=== PATIENT | male | born 1975 | race Caucasian/White ===

== ENCOUNTER 2024-02-02 03:17 | Emergency (ER) | payer OTHER, SELFPAY ==
[2024-02-02 03:20] VITALS: BP 133/106; PULSE 97; RESP 18; TEMP 36.6; O2SAT 94; BMI 27.6
--- NOTE | 2024-02-02 03:31 | ED_ITS ---
HPI - Extremity Problem General: Chief complaint: Extremity Problem,Nontraumatic Stated complaint: Back Pain- numbness Time Seen by Provider: 02/02/24 03:20 History of Present Illness: 48-year-old man who presents to the [facility] room with police after traffic stop. Apparently he was coming in for drug/alcohol testing. As he got here he says his back started hurting. He says he has chronic SI joint issues and now his back is hurting. He does appear to be on some sort of drug or have some sort of psychiatric troubles. He is complaining of right SI joint pain. My HPI back pain Review of Systems Narrative: Constitutional symptoms: Negative except as documented in HPI. Skin symptoms: Negative except as documented in HPI. Eye symptoms: Negative except as documented in HPI. ENMT symptoms: Negative except as documented in HPI. Respiratory symptoms: Negative except as documented in HPI. Cardiovascular symptoms: Negative except as documented in HPI. Gastrointestinal symptoms: Negative except as documented in HPI. Genitourinary symptoms: Negative except as documented in HPI. Musculoskeletal symptoms: Negative except as documented in HPI. Neurologic symptoms: Negative except as documented in HPI. Psychiatric symptoms: Negative except as documented in HPI. Endocrine symptoms: Negative except as documented in HPI. Physical Exam Narrative: EXAM NARRATIVE: General: Alert, no acute distress. Skin: warm and dry Head: Normocephalic Neck: Trachea midline Eye: Extraocular movements are intact. Ears, nose, mouth and throat: Oral mucosa moist Respiratory: Respirations are non-labored Musculoskeletal: Normal ROM Neurological: Alert and oriented, No focal neurological deficit observed. Psychiatric: Cooperative, inappropriate affect Course Vital Signs: Vital signs: Vital Signs Temperature 97.8 F 02/02/24 03:20 Pulse Rate 97 02/02/24 03:20 Respiratory Rate 18 02/02/24 03:20 Blood Pressure 133/106 02/02/24 03:20 Pulse Oximetry 94 02/02/24 03:20 Oxygen Delivery Me thod Room Air 02/02/24 03:20 MDM - Extremity (Nontraumatic) Medical Decision Making Assessment and plan: Low back pain ?IM Toradol, IM Decadron, p.o. Flexeril - Discharged home - Discussed plan with patient. Answered any questions. - Evaluation and treatment of this problem were appropriate in the emergency setting. No radiology studies performed this visit Discharge Plan Discharge Patient Disposition: Home Clinical Impression: Back pain Condition: Stable Discharge Orders: Discharge ED (Routine); Ordered 02/02/24 Ordered By: Kristina Rivera Referrals: ADRIAN GERMAIN MD [place] [Family Provider] - Discharge Diet: Usual diet Discharge Activity: Resume usual activity Patient Instructions: Back Pain (ED) Activity Restrictions/Additional Instructions: Thank you for choosing [facility] for your healthcare needs today. Please realize this is an emergency room and that we are providing you with a medical screening exam and this may not be complete and all inclusive of all the testing and or work up that you may need to determine your ailment or severity of your illness. You have been screened and evaluated and felt safe for discharge. Health conditions do change or evolve sometimes and as such it is important that you follow up with your Primary Doctor to be re checked, 3-5 days is a general good time frame for follow up. You are always welcome to return to the ED for re assessment if your symptoms are worsening or you have new concerns Coding Level of Care Code ED Ice Puller for Teodora Caballero
[2024-02-02] MEDS: cyclobenzaprine 10 mg Tablet PO (03:39)
[2024-02-02] MEDS: ketorolac 60 mg/2 mL INJ IM (03:39)
[2024-02-02] MEDS: dexamethasone 10 mg/mL INJ IM (03:39)
== END 2024-02-02 03:46 | disposition home or self-care (01) ==
PROVIDERS: Emergency Provider Emergency Medicine
DX: M54.50 Low back pain, unspecified (principal)
CPT/HCPCS: 96372; 99284; J1100; J1885

== ENCOUNTER 2024-05-31 17:56 | Emergency (ER) | payer OTHER, SELFPAY ==
[2024-05-31 18:22] VITALS: BP 115/82; PULSE 75; RESP 16; TEMP 36.5; O2SAT 94
--- NOTE | 2024-05-31 18:53 | XRR_ITS ---
PROCEDURE INFORMATION: Exam: XR Right Foot Exam date and time: 05/31/2024 6:58 PM Age: 49 years old Clinical indication: Injury or trauma; Fall; Fracture, traumatic; Closed fracture; Foot; Right; Prior surgery; Surgery date: 6+ months; Surgery type: Pin in ankle; Additional info: Foot pain, fall missed steps TECHNIQUE: Imaging protocol: Radiologic exam of the right foot. Views: 3 or more views. COMPARISON: No relevant prior studies available. FINDINGS: Bones/joints: Acute comminuted fracture through the 5th metatarsal neck with fracture line approaching the metatarsal head but without definite intra-articular extension. Mild superior displacement of the 5th metatarsal head. Mild medial displacement of a butterfly fracture fragment Intramedullary screws at the medial malleolus. Calcaneal enthesopathy. Soft tissues: Lateral midfoot soft tissue swelling. XR/XR foot RT min 3V* [id number] IMPRESSION: Acute, comminuted and mildly displaced fracture through the 5th metatarsal neck without definite intra-articular extension.
--- NOTE | 2024-05-31 19:09 | XRR_ITS ---
PROCEDURE INFORMATION: Exam: XR Right Ankle Exam date and time: 05/31/2024 7:02 PM Age: 49 years old Clinical indication: Ankle and foot; Right; Prior surgery; Surgery date: 6+ months; Surgery type: RT ankle fixation; Patient HX: RT foot/ankle pain post fall TECHNIQUE: Imaging protocol: Radiologic exam of the right ankle. Views: 3 or more views. COMPARISON: CR (LOW EXM, ) 05/31/2024 6:58 PM FINDINGS: Bones/joints: Remote screw fixation of the medial malleolus. No acute osseous abnormality of the ankle. Remote posttraumatic deformities at the medial and lateral malleoli. The ankle mortise is congruent. Calcaneal enthesopathy. Soft tissues: Unremarkable. XR/XR ankle RT min 3V* [id number] IMPRESSION: No acute osseous abnormality at the ankle.
[2024-05-31] MEDS: ketorolac 60 mg/2 mL INJ IM (21:15)
--- NOTE | 2024-05-31 23:46 | W.ED.EXTPRO ---
HPI - Extremity Problem General: Chief complaint: Extremity Injury, Lower Stated complaint: right foot injury Time Seen by Provider: 05/31/24 20:23 Source: patient Mode of arrival: ambulatory Limitations: no limitations History of Present Illness: Patient is a 49-year-old male presenting to the emergency department with a right foot injury that occurred just prior to arrival. He states he was carrying his granddaughter walking on steps when he missed the last 3 steps causing an inversion injury to his right ankle. States the pain and swelling have gotten worse, primarily to the distal lateral aspect of the right foot. Does have a prior surgical history on the right foot with screws in place, denies any pain over this area. Has remained somewhat ambulatory, but states that is becoming increasingly painful. Has not taken anything for pain at this time, is requesting something right now. MD Complaint: extremity pain Onset (ago): hour(s) Pain Consistency: constant Location: right and lower extremity (foot) Radiation: distal Exacerbating factors: range of motion and weight bearing Associated symptoms: Deny chest pain, fever(s) or rash Related Data Allergies Allergy/AdvReac Type Severity Reaction Status Date / Time No Known Allergies Allergy Verified 05/31/24 18:26 Review of Systems General: Reports: 10 or more systems reviewed and unremarkable except in HPI and below Const: Denies: fever(s) or chills Card: Denies: chest pain Resp: Denies: dyspnea or productive cough GI: Denies: abdominal pain, nausea, vomiting or diarrhea : Denies: flank pain Musc: Reports: extremity pain and extremity swelling; Denies: neck pain, back pain, joint pain, joint swelling, joint redness, joint warmth or muscle weakness Skin/Breast: Denies: rash Neuro: Denies: headache(s), numbness in extremities or weakness in extremities Physical Exam Const: COMMON NORMALS: no acute distress, patient oriented x3, no limitations, healthy appearing, alert and well nourished HENMT: COMMON NORMALS: normocephalic and atraumatic HEAD & SCALP: normocephalic and atraumatic Neck/C-Spine: COMMON NORMALS: full ROM, supple and no meningeal signs Resp: COMMON NORMALS: normal respiratory effort, No use of accessory muscles and clear to auscultation bilaterally AUSCULTATION: clear to auscultation bilaterally Cardio: COMMON NORMALS: regular rate and regular rhythm RATE: regular rate RHYTHM: regular rhythm Extremity: NARRATIVE EXTREMITY EXAM: There is a good amount of swelling and bruising noted just distal to the base of the fifth metatarsal on the right foot. This area is moderately tender to palpation. He does have good sensations distally. Also has 2+ DP/PT pulses of the right foot. Postoperative scars present from prior surgery. Neuro: COMMON NORMALS: patient oriented x3, moves all extremities, no focal motor deficits and no sensory deficits noted SENSORIUM/ORIENTATION: Yes alert MENINGEAL SIGNS: Yes no meningeal signs Skin: COMMON NORMALS: no rashes or lesions noted GENERAL SKIN EXAM: no rashes or lesions noted Course Vital Signs: Vital signs: Vital Signs Temperature 97.7 F 05/31/24 18:22 Pulse Rate 75 05/31/24 18:22 Respiratory Rate 16 05/31/24 18:22 Blood Pressure 115/82 05/31/24 18:22 Pulse Oximetry 94 05/31/24 18:22 Oxygen Delivery Me thod Room Air 05/31/24 18:22 MDM - Extremity (Nontraumatic) Medical Decision Making Patient fell a few hours prior to arrival injuring his right foot. There is an acute, comminuted displaced fracture through the fifth metatarsal neck. Pictures were sent to Dr. Manning, podiatry, who agrees to see the patient next week after being splinted and made nonweightbearing. Post splint neurovascular status was intact. Was given a shot of Toradol prior to discharge. Lab Data Radiology Impressions Foot X-Ray 05/31/24 18:53 IMPRESSION: Acute, comminuted and mildly displaced fracture through the 5th metatarsal neck without definite intra-articular extension. Ankle X-Ray 05/31/24 19:09 IMPRESSION: No acute osseous abnormality at the ankle. All radiology interpretation(s) finalized by discharge Discharge Plan Discharge Patient Disposition: Home Clinical Impression: Fracture of fifth metatarsal bone of right foot Condition: Stable Discharge Orders: Discharge ED (Routine); Ordered 05/31/24 Ordered By: Eusebio Pardo Patient Instructions: Foot Fracture in Adults (ED) Activity Restrictions/Additional Instructions: Nonweightbearing with crutches. Follow-up with podiatry next week. Splint on until follow-up. Please elevate the extremity and take Tylenol and ibuprofen for pain. Return with any new or worsening. Coding Level of Care Code ED Link Trainer Maintenance Man for Teodora Caballero
--- NOTE | 2024-06-03 07:22 | DCPLANNER ---
message sent to podiatry for er f/u
== END 2024-05-31 21:27 | disposition home or self-care (01) ==
PROVIDERS: Emergency Provider Physician Assistant
DX: S92.351A Displaced fracture of fifth metatarsal bone, right foot, initial encounter for closed fracture (principal); X58.XXXA Exposure to other specified factors, initial encounter
CPT/HCPCS: 29515; 73610; 73630; 96372; 99284; E0114; J1885

== ENCOUNTER → 2024-06-10 15:55 | Outpatient (BNVA) | payer OTHER, SELFPAY | PROVIDERS: Visit Provider Podiatrist Foot & Ankle Surgery | DX: S92.351A Displaced fracture of fifth metatarsal bone, right foot, initial encounter for closed fracture; W10.8XXA Fall (on) (from) other stairs and steps, initial encounter | CPT/HCPCS: 99204 ==

== ENCOUNTER 2024-06-17 06:22 | Day surgery (SDC) | payer OTHER, SELFPAY ==
[2024-06-17] VITALS (8 sets, daily range): BP systolic 93–132; BP diastolic 56–82; PULSE 60–85; RESP 12–20; TEMP 36.1–36.4; O2SAT 93–96
--- NOTE | 2024-06-17 | XR_ITS ---
WS: [id number] C-ARM RADIOGRAPHS RIGHT FOOT; 2 IMAGES HISTORY: TIM PICS COMPARISON: 06/04/2024 Intraoperative imaging during plate screw and screw fixation across a comminuted fracture of the dist al third of the fifth metatarsal. Plate and screw in good position and alignment. XR/XR foot RT 2V [id number] IMPRESSION: Intraoperative imaging during plate and screw fixation comminuted fracture dist al fifth metatarsal.
[2024-06-17] MEDS: sodium chloride 0.9% 1,000 ML 30 ML IV (06:42)
[2024-06-17] MEDS: acetaminophen 1,000 MG/100 ML PIGGYBACK 400 MG IV (06:46)
[2024-06-17] MEDS: gabapentin 300 mg Capsule PO (06:49)
--- NOTE | 2024-06-17 07:55 | ANES.PREANE2 ---
Pre-Anesthetic Assessment Height/Weight: Height 1.75 m Weight 83.915 kg Temp Pulse Resp BP Pulse Ox O2 Del Method 97.3 F L 85 20 H 132/82 95 Room Air 06/17/24 06:35 06/17/24 06:35 06/17/24 06:35 06/17/24 06:35 06/17/24 06:35 06/17/24 06:35 Preop Diagnosis: right foot 5th metatarsal fracture Operation Date: 06/17/24 08:05 Proposed Procedures p ORIF Metatarsal right fifth metatarsal(Right) - Eusebio Manning DPM Familial anesthetic complications: None Was Beta Daisy taken within 24 hours: N/A Was Clonidine taken within 24 hours: N/A Last intake: Intake Last Liquid Date 06/16/24 Last Liquid Time 00:00 Last Solid Date 06/16/24 Last Solid Time 18:00 Social Tobacco and No alcohol Exam alert, oriented x 3, clear to auscultation bilaterally and regular rate & rhythm Airway Mallampati: Class I Dentition: full Anesthetic Plan ASA status: 1 Anesthesia: MAC Risk of > 500 ml blood loss (7ml/kg in children): No Medications/Allergies Home Medications Medication Instructions Recorded Confirmed Last Taken Type No Known Home Medications 06/10/24 06/17/24 Unknown History Allergies Allergy/AdvReac Type Severity Reaction Status Date / Time No Known Allergies Allergy Verified 06/13/24 13:02 Current Medications Generic Name Dose Route Start Last Admin Trade Name Freq PRN Reason Stop Dose Admin Sodium Chloride 1,000 mls @ 30 mls/hr 06/17/24 06:30 06/17/24 06:42 Sodium Chloride 0.9% IV 06/18/24 06:29 30 mls/hr .Q24H KRISTEN Administration PFSH Anesthesia Social History Smoking and tobacco/nicotine status: light tobacco/nicotine user Data Anesthesia Cardiac Studies: No Data to Display
--- NOTE | 2024-06-17 08:12 | W.PM.OPSUD ---
Surgery/Procedure H&P Update DATE OF PROCEDURE: June 17, 2024 DATE H&P PERFORMED: 06/10/24 H&P UPDATE INFORMATION: I have reviewed H&P completed within last 30 days, I have examined patient prior to procedure, No changes to prior documentation and H&P is in [facility] EMR on date indicated PREOP DIAGNOSIS: right foot 5th metatarsal fracture PLANNED PROCEDURE: Operation Date: 06/17/24 08:05 Proposed Procedures p ORIF Metatarsal right fifth metatarsal(Right) - Eusebio Manning DPM
[2024-06-17] MEDS: ceFAZolin 2,000 mg SDV 2000 MG IVP (08:30)
[2024-06-17] MEDS: BUPivacaine 0.5% INJ 30 mL INJECTION (08:54)
--- NOTE | 2024-06-17 09:49 | P.BOP_ITS ---
Date of procedure: 06/17/2024 Surgeon name: Eusebio Manning D.P.M. Medical Records Field Technician(s) name(s): Jorge Procedure(s) performed: Open reduction internal fixation right fifth metatarsal fracture Description of findings: Comminuted right fifth metatarsal Estimated blood loss: 5 cc Tourniquet time: 43 minutes Specimen(s) removed: None Post-operative diagnosis: Fifth metatarsal fracture right foot
--- NOTE | 2024-06-17 09:50 | P.OP_ITS ---
Operative Report Date of procedure: June 17, 2024 Surgeon: Eusebio Manning DPM Procedure: Date of procedure: 06/17/2024 Pre-op diagnosis: Right foot fifth metatarsal fracture Post-op diagnosis: Same Post-op findings: Comminuted distal right fifth metatarsal fracture Procedure done: Open reduction internal fixation right distal fifth metatarsal fracture CPT 10357 Implants: Oblique straight plate with 2.7 locking and nonlocking screws from [place] 28 Specimens removed: None Surgeon: Dr. Euseibo Manning DPM Senior Media Director: Jorge Estimated blood loss: 5 cc Tourniquet time: 43 minutes Complications: None Patient is a 49-year-old male that has a history of right foot fifth metatarsal fracture. Treatment options were discussed with the patient. Patient wishes to proceed with surgical intervention at this time. A lengthy discussion regarding the procedure, including risks and complications has been had with the patient and is noted in the recent clinic note. Written and verbal consent have been obtained. All patient questions have been answered to the patient?s satisfaction. No written or verbal guarantees have been given or implied. The patient has been NPO since midnight. The history has been reviewed and the history and physical is current. The signed consent was confirmed and placed in the patient chart. Patient imaging has been reviewed and is consistent with the diagnosis. Under mild sedation, the patient was brought into the operating room and placed on the table in the supine position. IV antibiotics were given by the anesthesia team as preoperative surgical prophylaxis. General sedation was then performed by the anesthesiateam. A pneumatic tourniquet was then placed about the right ankle. A local field block was performed using 0.5% Marcaine plain. The operative extremity was then prepped and draped in the usual fashion. The extremity was then elevated and exsanguinated before the tourniquet was inflated to 250 mmHg. After inflation, the following procedure was then performed. Attention was directed to the dorsal lateral aspect of the fifth metatarsophalangeal joint. A #15 blade was used to make a 6 cm incision overlying this area. Blunt dissection was carried down through subcutaneous superficial fascia to the level of periosteum which was incised with a #15 blade. Care was taken to preserve adjacent neurovascular structures as well as tenderness structures. The fracture pattern of the fifth metatarsal neck region was visualized and noted to have comminution. Care was taken to remove hematoma from site of fracture. Next, fracture was reduced and temporarily fixated befo re a baby gorilla angled straight plate was applied spanning the fracture. Good positioning of plate and screws was noted clinically as well as on C-arm imaging. The site was irrigated with copious Knight sterile saline before attention was directed to closure. Deep tissue was closed with 3-0 Vicryl followed by subcuticular closure with 4-0 Vicryl and skin closed with 4-0 nylon in horizontal mattress fashion. The tourniquet was let down good hyperemic response was noted to all digits of the right foot. The incision site was dressed with Xeroform, 4 x 4 gauze, Kerlix, Celso. The patient tolerated the procedure and anesthesia well and without complication. The patient was transported from the operating room to the recovery room with vital signs stable and vascular status intact to all digits of the right foot. The patient was given both written and verbal instructions to remain nonweightbearing to the operative extremity, to keep dressings/splint clean, dry and intact and to take pain medication as directed. The patient will follow-up in the outpatient setting at their scheduled appointment. The patient was discharged with my personal number and was instructed to call if any quest ions or issues should arise. They were discharged home once anesthesia criteria was met.
--- NOTE | 2024-06-17 10:25 | ANE.PACU2 ---
Inpatient post-anesthesia follow up: Airway intact: Yes Vital signs: Temperature 97.0 F Pulse Rate 60 Respiratory Rate 17 Blood Pressure 112/76 Pulse Oximetry 96 Oxygen Delivery Me thod Room Air Oxygen Flow Rate Fraction of Inspir ed Oxygen Hydration adequate: Yes Nausea and vomiting: No Pain level: 1 Mental status: Baseline
== END 2024-06-17 10:27 | disposition home or self-care (01) ==
PROVIDERS: Visit Provider Podiatrist Foot & Ankle Surgery
PROC: (CPT 28485; principal; 2024-06-17 07:55)
DX: S92.351A Displaced fracture of fifth metatarsal bone, right foot, initial encounter for closed fracture (principal); W01.0XXA Fall on same level from slipping, tripping and stumbling without subsequent striking against object, initial encounter
CPT/HCPCS: 28485; 73620; 76000; C1713; J0131; J0690; J2704; J3010; J3490; J7030

== ENCOUNTER → 2024-07-01 13:36 | Outpatient (BNVA) | payer OTHER, SELFPAY | PROVIDERS: PCP Internal Medicine; Visit Provider Podiatrist Foot & Ankle Surgery | DX: M79.671 Pain in right foot (principal); S92.351A Displaced fracture of fifth metatarsal bone, right foot, initial encounter for closed fracture; X58.XXXA Exposure to other specified factors, initial encounter | CPT/HCPCS: 73630; 99024 ==

== ENCOUNTER → 2024-07-22 13:00 | Outpatient (BNVA) | payer OTHER, SELFPAY | PROVIDERS: PCP Internal Medicine; Visit Provider Podiatrist Foot & Ankle Surgery | DX: M79.671 Pain in right foot (principal); Z98.890 Other specified postprocedural states; S92.351D Displaced fracture of fifth metatarsal bone, right foot, subsequent encounter for fracture with routine healing; X58.XXXD Exposure to other specified factors, subsequent encounter | CPT/HCPCS: 73630; 99024 ==

== ENCOUNTER 2024-08-23 17:15 | Emergency (ER) | payer OTHER, SELFPAY ==
--- NOTE | 2024-08-23 17:18 | XRR_ITS ---
PROCEDURE INFORMATION: Exam: XR Left Foot Exam date and time: 08/23/2024 5:57 PM Age: 49 years old Clinical indication: Ankle and foot; Left; Lt foot/ankle pain/swelling post twisting injury today TECHNIQUE: Imaging protocol: Radiologic exam of the left foot. Views: 3 or more views. COMPARISON: No relevant prior studies available. FINDINGS: Bones/joints: Normal. Soft tissues: Normal. XR/XR foot LT min 3V* [id number] IMPRESSION: No acute findings.
[2024-08-23 17:23] VITALS: BP 165/86; PULSE 86; RESP 22; TEMP 36.7; O2SAT 98; BMI 26.4
--- NOTE | 2024-08-23 18:01 | XRR_ITS ---
PROCEDURE INFORMATION: Exam: XR Left Ankle Exam date and time: 08/23/2024 6:00 PM Age: 49 years old Clinical indication: Ankle and foot; Left; Lt foot/ankle pain/swelling post twisting injury today TECHNIQUE: Imaging protocol: Radiologic exam of the left ankle. Views: 3 or more views. COMPARISON: CR (LOW EXM, ) 08/23/2024 5:57 PM FINDINGS: Bones/joints: Well corticated ossification inferior to the medial malleolus suggestive of old injury. No acute fracture. Soft tissues: Soft tissue swelling along the lateral ankle. XR/XR ankle LT min 3V* [id number] IMPRESSION: No acute findings.
--- NOTE | 2024-08-23 19:51 | W.ED.EXTPRO ---
HPI - Extremity Problem General: Chief complaint: Extremity Injury, Lower Stated complaint: lt foot inj Time Seen by Provider: 08/23/24 19:01 Source: patient Mode of arrival: ambulatory Limitations: no limitations History of Present Illness: Patient is a 49-year-old male who presents the emergency department after injuring left foot prior to arrival. Patient states this is a simple trip and fall, as he had inversion suddenly of his left ankle after stepping wrong. Reporting 10/10 pain. History of right foot injury requiring surgery. Notes swelling and pain to the lateral aspect of the left ankle. Was using his old crutches on entry into the ED. Has not taken anything for the pain, as this occurred just about 30 minutes before presenting. No neurological symptoms reported distally, no skin color changes or coolness. No open injury or wounds. MD Complaint: joint pain Onset (ago): minute(s) Pain Consistency: constant Location: left and lower extremity (Ankle) Severity scale (1-10): 10 Radiation: distal Exacerbating factors: weight bearing Associated symptoms: Deny chest pain, fever(s) or rash Related Data Home Medications Medication Instructions Recorded Confirmed No Known Home Medications 06/10/24 07/22/24 Previous Rx's Medication Instructions Recorded hydrocodone 5 mg-acetaminophen 325 1 tab PO Q6H PRN pain #28 tabs 06/17/24 mg tablet Allergies Allergy/AdvReac Type Severity Reaction Status Date / Time No Known Allergies Allergy Verified 08/23/24 17:23 Review of Systems General: Reports: 10 or more systems reviewed and unremarkable except in HPI and below Const: Denies: fever(s) or chills Card: Denies: chest pain Resp: Denies: dyspnea or productive cough GI: Denies: abdominal pain, nausea, vomiting or diarrhea : Denies: flank pain Musc: Reports: joint pain (Left ankle), joint swelling (Left ankle) and limited range of motion; Denies: neck pain, back pain, extremity pain, extremity swelling, joint redness, joint warmth or muscle weakness Skin/Breast: Denies: rash Neuro: Denies: headache(s), numbness in extremities or weakness in extremities PFS ED PFSH: Social History Smoking and tobacco/nicotine status: light tobacco/nicotine user Physical Exam Const: COMMON NORMALS: no acute distress, patient oriented x3, no limitations, healthy appearing, alert and well nourished HENMT: COMMON NORMALS: normocephalic and atraumatic HEAD & SCALP: normocephalic and atraumatic Neck/C-Spine: COMMON NORMALS: full ROM, supple and no meningeal signs Resp: COMMON NORMALS: normal respiratory effort, No use of accessory muscles and clear to auscultation bilaterally AUSCULTATION: clear to auscultation bilaterally Cardio: COMMON NORMALS: regular rate and regular rhythm RATE: regular rate RHYTHM: regular rhythm Extremity: COMMON NORMALS: full ROM, capillary refill normal and no clubbing, cyanosis or edema NARRATIVE EXTREMITY EXAM: There is swelling to the left lateral malleolus, tender to palpation of this area. There is no bruising. Distal neurovascular exam intact. DP/PT pulses intact. No issues with dorsiflexion or plantarflexion. Positive inversion ankle testing. Negative anterior drawer. Neuro: COMMON NORMALS: patient oriented x3, moves all extremities, no focal motor deficits and no sensory deficits noted SENSORIUM/ORIENTATION: Yes alert MENINGEAL SIGNS: Yes no meningeal signs Skin: COMMON NORMALS: no rashes or lesions noted GENERAL SKIN EXAM: no rashes or lesions noted Course Vital Signs: Vital signs: Vital Signs Temperature 98.1 F 08/23/24 17:23 Pulse Rate 86 08/23/24 17:23 Respiratory Rate 22 H 08/23/24 17:23 Blood Pressure 165/86 08/23/24 17:23 Pulse Oximetry 98 08/23/24 17:23 MDM - Extremity (Nontraumatic) Medical Decision Making Patient injured his left foot prior to arrival. There was swelling to the left lateral ankle, his distal neurovascular exam was intact and there is no obvious sign of fracture or dislocation. X-ray of the left foot and ankle did not demonstrate any acute findings. This does present as an acute ankle sprain, likely of the ATFL and he will continue using his crutches as needed but encouraged him to weight-bear as tolerated and enact RICE therapy. With any concerns he is instructed to follow-up with primary care for further evaluation, and general return precautions given. He agrees with this plan ready for discharge. Lab Data Radiology Impressions Foot X-Ray 08/23/24 17:18 IMPRESSION: No acute findings. Ankle X-Ray 08/23/24 18:01 IMPRESSION: No acute findings. All radiology interpretation(s) finalized by discharge Discharge Plan Discharge Patient Disposition: Home Clinical Impression: Left ankle sprain Condition: Stable Prescriptions: No Action No Known Home Medications hydrocodone-acetaminophen 5-325 mg tablet 1 tab PO Q6H PRN (Reason: pain) Qty: 28 0RF Discharge Orders: Discharge ED (Routine); Ordered 08/23/24 Ordered By: Eusebio Pardo Referrals: ADRIAN GERMAIN MD IN DR [Primary Care Provider] - Patient Instructions: Ankle Sprain (ED) Activity Restrictions/Additional Instructions: Crutches as needed, weightbearing as tolerated. Rest, ice, compression, and elevation of the extremity. Ibuprofen and Tylenol for pain relief. Gentle range of motion exercises. Please follow-up with primary care and return with any new or worsening. Coding Level of Care Code ED [employer] for Teod[facility] Caballero
== END 2024-08-23 19:59 | disposition home or self-care (01) ==
PROVIDERS: Emergency Provider Physician Assistant; PCP Internal Medicine
DX: S93.402A Sprain of unspecified ligament of left ankle, initial encounter (principal); X58.XXXA Exposure to other specified factors, initial encounter
CPT/HCPCS: 73610; 73630; 99283

== ENCOUNTER 2025-06-10 06:42 | Outpatient (CLI) | payer OTHER, SELFPAY ==
[2025-06-10 06:51] VITALS: BMI 28.8
--- NOTE | 2025-06-10 08:05 | PC.NURSE ---
Patient could not do the nuclear imaging scans. He wishes to reschedule after getting anxiety meds. Will notify scheduling.
== END 2025-06-10 06:43 | disposition home or self-care (01) ==
LOC: CDL 06:45
PROVIDERS: PCP Internal Medicine; Visit Provider Internal Medicine
DX: Z01.89 Encounter for other specified special examinations (principal)
CPT/HCPCS: 36415